=== PATIENT | female | born 2000 ===

== ENCOUNTER 2019-09-14 08:31 | Emergency (ER) | payer BC ==
[2019-09-14] MEDS ORDERED: NS 0.9% 1000 ML** 1,000 ML IV ONE ×2 (09:19→10:33)
[2019-09-14 09:41] LABS: ABS Lymphocytes 0.9 10^3/ul (1.0-4.8); ABS Monocytes 0.4 10^3/ul (0-0.8); ABS Neutrophils 2.6 10^3/ul (1.5-7.7); Eosinophil % 0.6 %; Hematocrit 32 % (35-47); Hemoglobin 10.6 g/dL (12.0-16.0); Mean Corpuscular HGB Conc 33 g/dL (31-36); Mean Corpuscular Hemoglobin 24 pg (27-31); Mean Corpuscular Volume 73 fL (80-97); Mean Platelet Volume 8.2 fL (7.4-10.4); Platelet Count 201 10^3/uL (150-450); Red Blood Count 4.46 10^6 /uL (3.70-4.87); Red Cell Distribution Width 18 % (10-15); White Blood Count 3.9 10^3/uL (3.5-10.8)
[2019-09-14 09:49] LABS: Activated Partial Thrombo Time 31.8 seconds (26.0-38.0); INR 1.01 (0.82-1.09)
[2019-09-14 09:55] LABS: ALT 31 U/L (7-52); AST 31 U/L (13-39); Albumin 4.2 g/dL (3.2-5.2); Albumin/Globulin Ratio 1.2 (1-3); Alkaline Phosphatase 96 U/L (34-104); Anion Gap 8 mmol/L (2-11); Blood Urea Nitrogen 12 mg/dL (6-24); CO2 Carbon Dioxide 25 mmol/L (22-32); Calcium 8.6 mg/dL (8.6-10.3); Chloride 100 mmol/L (101-111); EGFR African American 109.6 (>60); EGFR Non-African American 90.5 (>60); Globulin 3.4 g/dL (2-4); Glucose 108 mg/dL (70-100); Potassium 3.8 mmol/L (3.5-5.0); Sodium 133 mmol/L (135-145); Total Protein 7.6 g/dL (6.4-8.9)
[2019-09-14 10:00] LABS: HCG Pregnancy < 0.60 mIU/mL
[2019-09-14] MEDS ORDERED: Ferrous Sulfate TAB* 325 MG PO ONE (10:33)
[2019-09-14 11:41] VITALS: BP 126/82
--- NOTE | 2019-09-14 13:06 | ED ---
GI/ HPI - HPI Summary HPI Summary: This patient is a 19-year-old female with a history of chronic iron deficiency anemia presenting to the ED with concern for vaginal bleed. She states she started a new OCP 10 days ago, (does not recall the name), and began having vaginal bleeding approximately 7 days ago. She states this was light and then became a little bit heavier and over the past 2 and half days she has been soaking through 2 tampons and one pad every 2-3 hours. She is concerned for her iron deficiency anemia. She has never needed a transfusion. She does take an iron supplement daily. She states her periods are typically irregular and sometimes heavy. She denies any abdominal cramping. Denies any back pain. She has not taken any medication [id number] for relief. She does not see an HYDRA[facility] MODELING [facility]INEER in this area. She has never had a history of ovarian cysts or other ovarian pathologies. Otherwise healthy, takes no medications. Denies smoking or alcohol history. - History of Current Complaint Chief Complaint: EDVaginalBleeding Time Seen by Provider: 09/14/19 09:14 Stated Complaint: GENERAL PER PT Hx Obtained From: Patient Hx Last Menstrual Period: 06/08/17 Onset/Duration: Started Days Ago Timing: Constant Severity: Worse Since: - 2.5 days ago Vaginal Bleeding Description: Bright Red Pain Intensity: 1 Associated Signs and Symptoms: Positive: Dizziness - none curerntly - had episodes this AM, Weakness. Negative: Pallor Aggravating Factor(s): Nothing Alleviating Factor(s): Nothing - Allergy/Home Medications Allergies/Adverse Reactions: Allergies Allergy/AdvReac Type Severity Reaction Status Date / Time clindamycin Allergy Unknown Verified 09/14/19 08:52 Reaction Details Penicillins Allergy Hives Verified 09/14/19 08:52 Home Medications: Home Medications Sprintec 28 Day Tablet 1 tab PO DAILY 09/14/19 [History Confirmed 09/14/19] PMH/Surg Hx/FS Hx/Imm Hx Previously Healthy: Yes Sensory History: Denies: Hx Legally Blind, Hx Deafness Opthamlomology History: Denies: Hx Legally Blind - Immunization History Hx Pertussis Vaccination: No Immunizations Up to Date: Yes Infectious Disease History: No Infectious Disease History: Denies: Traveled Outside the [place] in Last 30 Days - Family History Known Family History: Positive: Diabetes, Other - Crohn's disease in father Negative: Blood Disorder - Social History Occupation: Employed Full-time Lives: With Family Alcohol Use: Weekly Hx Substance Use: Yes Substance Use Type: Reports: Marijuana Smoking Status (MU): Never Smoked Tobacco Review of Systems Negative: Fever, Chills, Fatigue, Skin Diaphoresis Negative: Palpitations, Chest Pain Negative: Shortness Of Breath, Cough Genitourinary: Negative Positive: no symptoms reported, see HPI Positive: Arthralgia, Myalgia Neurological: Negative All Other Systems Reviewed And Are Negative: Yes Physical Exam Triage Information Reviewed: Yes Vital Signs On Initial Exam: Initial Vitals Temp Pulse Resp BP Pulse Ox 100.2 F 119 18 130/92 96 09/14/19 08:48 09/14/19 08:48 09/14/19 08:48 09/14/19 08:48 09/14/19 08:48 Vital Signs Reviewed: Yes Appearance: Positive: Well-Appearing, Well-Nourished Skin: Positive: Warm Head/Face: Positive: Normal Head/Face Inspection Eyes: Positive: EOMI, SHANA, Conjunctiva Clear Neck: Positive: Supple, No Lymphadenopathy Respiratory/Lung Sounds: Positive: Clear to Auscultation, Breath Sounds Present Cardiovascular: Positive: RRR, Pulses are Symmetrical in both Upper and Lower Extremities Musculoskeletal: Positive: Normal, Strength/ROM Intact Neurological: Positive: Speech Normal Psychiatric: Positive: Normal, Affect/Mood Appropriate AVPU Assessment: Alert Procedures - Sedation Patient Received Moderate/Deep Sedation with Procedure: No Diagnostics - Vital Signs Vital Signs Temp Pulse Resp BP Pulse Ox 09/14/19 11:40 99.3 F 93 18 126/82 99 09/14/19 11:37 126/82 09/14/19 08:48 100.2 F 119 18 130/92 96 - Laboratory Lab Results: Lab Results 09/14/19 09/14/19 09/14/19 Range/Units 09:27 09:27 09:27 WBC 3.9 (3.5-10.8) 10^3/uL RBC 4.46 (3.70-4.87) 10^6 /uL Hgb 10.6 L (12.0-16.0) g/dL Hct 32 L (35-47) % MCV 73 L (80-97) fL MCH 24 L (27-31) pg MCHC 33 (31-36) g/dL RDW 18 H (10-15) % Plt Count 201 (150-450) 10^3/uL MPV 8.2 (7.4-10.4) fL Neut % (Auto) 66.0 % Lymph % (Auto) 23.0 % Banner % (Auto) 9.8 % Eos % (Auto) 0.6 % Baso % (Auto) 0.6 % Absolute Neuts (auto) 2.6 (1.5-7.7) 10^3/ul Absolute Lymphs (auto) 0.9 L (1.0-4.8) 10^3/ul Absolute Monos (auto) 0.4 (0-0.8) 10^3/ul Absolute Eos (auto) 0.0 (0-0.6) 10^3/ul Absolute Basos (auto) 0.0 (0-0.2) 10^3/ul Absolute Nucleated RBC 0.0 10^3/ul Nucleated RBC % 0.0 INR (Anticoag Therapy) 1.01 (0.82-1.09) APTT 31.8 (26.0-38.0) seconds Sodium 133 L (135-145) mmol/L Potassium 3.8 (3.5-5.0) mmol/L Chloride 100 L (101-111) mmol/L Carbon Dioxide 25 (22-32) mmol/L Anion Gap 8 (2-11) mmol/L BUN 12 (6-24) mg/dL Creatinine 0.80 (0.51-0.95) mg/dL Est GFR ( Amer) 109.6 (>60) Est GFR (Non-Af Amer) 90.5 (>60) BUN/Creatinine Ratio 15.0 (8-20) Glucose 108 H (70-100) mg/dL Calcium 8.6 (8.6-10.3) mg/dL Iron (50-212) ug/dL Total Bilirubin 0.30 (0.2-1.0) mg/dL AST 31 (13-39) U/L ALT 31 (7-52) U/L Alkaline Phosphatase 96 (34-104) U/L Total Protein 7.6 (6.4-8.9) g/dL Albumin 4.2 (3.2-5.2) g/dL Globulin 3.4 (2-4) g/dL Albumin/Globulin Ratio 1.2 (1-3) Beta HCG, Quant < 0.60 mIU/mL Blood Type Antibody Screen 09/14/19 09/14/19 Range/Units 09:27 09:28 WBC (3.5-10.8) 10^3/uL RBC (3.70-4.87) 10^6 /uL Hgb (12.0-16.0) g/dL Hct (35-47) % MCV (80-97) fL MCH (27-31) pg MCHC (31-36) g/dL RDW (10-15) % Plt Count (150-450) 10^3/uL MPV (7.4-10.4) fL Neut % (Auto) % Lymph % (Auto) % Banner % (Auto) % Eos % (Auto) % Baso % (Auto) % Absolute Neuts (auto) (1.5-7.7) 10^3/ul Absolute Lymphs (auto) (1.0-4.8) 10^3/ul Absolute Monos (auto) (0-0.8) 10^3/ul Absolute Eos (auto) (0-0.6) 10^3/ul Absolute Basos (auto) (0-0.2) 10^3/ul Absolute Nucleated RBC 10^3/ul Nucleated RBC % INR (Anticoag Therapy) (0.82-1.09) APTT (26.0-38.0) seconds Sodium (135-145) mmol/L Potassium (3.5-5.0) mmol/L Chloride (101-111) mmol/L Carbon Dioxide (22-32) mmol/L Anion Gap (2-11) mmol/L BUN (6-24) mg/dL Creatinine (0.51-0.95) mg/dL Est GFR ( Amer) (>60) Est GFR (Non-Af Amer) (>60) BUN/Creatinine Ratio (8-20) Glucose (70-100) mg/dL Calcium (8.6-10.3) mg/dL Iron 34 L (50-212) ug/dL Total Bilirubin (0.2-1.0) mg/dL AST (13-39) U/L ALT (7-52) U/L Alkaline Phosphatase (34-104) U/L Total Protein (6.4-8.9) g/dL Albumin (3.2-5.2) g/dL Globulin (2-4) g/dL Albumin/Globulin Ratio (1-3) Beta HCG, Quant mIU/mL Blood Type B Positive Antibody Screen Negative Result Diagrams: 09/14/19 09:27 09/14/19 09:27 Lab Statement: Any lab studies that have been ordered have been reviewed, and results considered in the medical decision making process. GIGU Course/Dx - Course Course Of Treatment: Pt is evaluated for bleeding. Pt appears well. Patient is hemodynamically stable. She was found to be tachycardic H&H 10.6 and 32 respectively. Sodium 133. Patient was repleted with 2 L fluids. Patient states she feels well at this time. Discussed return precautions with the patient. As vital signs remained stable and she is not having any heavy bleeding while in the ED, H&H is low but stable at this time, patient will follow up with [facility] [employer]. She understands to return if she continues to have heavy bleeding or she becomes symptomatic. - Diagnoses Differential Diagnoses - Female: Dehydration, Other - anemia, dysfunction uterine bleeding Provider Diagnoses: Vaginal bleeding, Iron deficiency anemia Discharge ED - Sign-Out/Discharge Documenting (check all that apply): Patient Departure - Discharge Plan Condition: Stable Disposition: HOME Patient Education Materials: Dysfunctional Uterine Bleeding (ED), Iron Rich Diet (ED), Iron Deficiency Anemia (ED) Referrals: [facility] - Jacques MONREAL [Primary Care Provider] - Louise Kyle MD [Medical Doctor] - Additional Instructions: Please call for an appt for OBGYN if you continue to bleed As discussed, it is normal to bleed heavily or irregular if you recently started a new oral contraceptive if you have shortness of breath, you continue to bleed heavily and are becoming symptomatic - return to the ED Drink plenty of water Increase your iron intake Increase your iron rich foods - Billing Disposition and Condition Condition: STABLE Disposition: Home
== END 2019-09-14 11:40 | disposition home or self-care (01) ==
LOC: ED 08:31
DX: N93.9 Abnormal uterine and vaginal bleeding, unspecified (principal); D50.9 Iron deficiency anemia, unspecified; Z88.0 Allergy status to penicillin; Z88.1 Allergy status to other antibiotic agents
CPT/HCPCS: 36415; 80053; 83540; 84702; 85025; 85610; 85730; 86850; 86900; 86901; 96360; 96361; 99282; A9270-GY